=== PATIENT | female | born 1975 | race African-American/Black ===

== ENCOUNTER 2020-10-28 16:17 | Emergency (ER) | payer MEDICAID ==
[~2020-10-28] VITALS: Ht 167.6 cm; Wt 117.9 kg
[2020-10-28 16:26] VITALS: BP 145/81
[2020-10-28] MEDS ORDERED: PRED20TA PO (16:37)
--- NOTE | 2020-10-28 16:47 | NUR ---
Patient discharged to home in stable condition. Written and verbal after care instructions given. Patient verbalizes understanding of instruction. Pt ambulatory with a steady gait
== END 2020-10-28 16:48 | disposition home or self-care (01) ==
LOC: ER 16:22
DX: J44.1 Chronic obstructive pulmonary disease with (acute) exacerbation (principal)

== ENCOUNTER 2021-02-01 14:33 | Emergency (ER) | payer SELFPAY ==
[~2021-02-01] VITALS: Ht 180.3 cm; Wt 163.3 kg
[~2021-02-01 14:33] MED LIST: PRED20TA PO
[2021-02-01 14:44] VITALS: BP 136/76
--- NOTE | 2021-02-01 15:26 | NUR ---
Patient discharged to home in stable condition. Written and verbal after care instructions given. Patient verbalizes understanding of instruction.
[2021-02-01] MEDS ORDERED: AZIT250T13 PO (15:29)
[2021-02-01] MEDS ORDERED: PROM473S7 PO (15:29)
[2021-02-01] MEDS ORDERED: PRED20TA PO (15:29)
== END 2021-02-01 15:37 | disposition home or self-care (01) ==
LOC: ER 14:36
DX: J44.1 Chronic obstructive pulmonary disease with (acute) exacerbation (principal); Z79.899 Other long term (current) drug therapy